=== PATIENT | female | born 1990 | race Caucasian/White ===

== ENCOUNTER 2017-12-06 13:21 | Inpatient (IN) | payer BC ==
[2017-12-07 03:46] VITALS: BMI 28.0
[2017-12-07] MEDS ORDERED: Methylergonovine 0.2 MG/ML VIAL IM PRN (03:55)
[2017-12-07] MEDS ORDERED: Misoprostol 200 MCG TAB PR PRN (03:55)
[2017-12-07] MEDS ORDERED: Ondansetron HCl/PF 4 MG/2 ML Vial IVP PRN ×2 (03:55→16:10)
[2017-12-07] MEDS ORDERED: Diphenoxylate HCl/Atropine Tablet PO PRN ×2 (03:55)
[2017-12-07] MEDS ORDERED: Lidocaine 1% (PF) 30 ML VIAL SC PRN (03:55)
[2017-12-07] MEDS ORDERED: Butorphanol Tartrate 1 MG/ML VIAL SLOW IVP PRN (03:55)
[2017-12-07] MEDS ORDERED: Carboprost 250 MCG/ML AMP IM PRN (03:55)
[2017-12-07] MEDS ORDERED: Acetaminophen 500 MG TAB PO PRN (03:55)
[2017-12-07] MEDS ORDERED: Ibuprofen 800 MG TAB PO PRN (03:55)
[2017-12-07] MEDS ORDERED: Promethazine HCl 25 MG/ML VIAL IM PRN ×2 (03:55→16:10)
[2017-12-07] MEDS ORDERED: HYDROcodone/Acetaminophen 5/325 mg Tablet PO PRN ×2 (03:55)
[2017-12-07] MEDS ORDERED: NS w/ Oxytocin 10 units 500 ML IV SCH ×2 (04:00)
[2017-12-07] MEDS: Lactated Ringer's 1,000 ML IV SCH ×5 (04:25→21:32)
[2017-12-07 04:31] LABS: Hemoglobin 13.6 g/dL (12.0-16.0); Mean Corpuscular HGB CONC 35.7 g/dL (32.0-36.0); Mean Corpuscular Hemoglobin 33.2 pg (27.0-31.0); Mean Corpuscular Volume 92.9 fL (78.0-98.0); Mean Platelet Volume 8.9 fL (7.4-10.4); Platelet Count 147 thou/uL (130-400); RBC Distribution Width 12.6 % (11.5-14.5); Red Blood Cell (RBC) Count 4.09 mill/uL (4.20-5.40); White Blood Cell (WBC) Count 8.7 thou/uL (4.8-10.8)
[2017-12-07] MEDS: Misoprostol 100 MCG TAB VAG SCH ×5 (04:35→16:16)
[2017-12-07 05:35] LABS: HBSAg Index 0.14 S/CO (0-0.99); Hep B Surf Ag Non-Reactive S/CO (NonReactive)
[2017-12-07 05:50] LABS: Syphilis Antibody Nonreactive (Nonreactive); Syphilis Antibody Index 0.05 S/CO (<1.00 Non-Reactive)
[2017-12-07] MEDS ORDERED: DISCONTINUE ALL PREVIOUS NARCOTICS FS SCH (09:15)
[2017-12-07] MEDS ORDERED: Butorphanol Tartrate 1 MG/ML VIAL ONE (15:16)
[2017-12-07] MEDS: Bupivacaine 0.5% 20 ML, fentaNYL Citrate/PF 400 MCG in Sodium Chloride 0.9% 72 ML EPIDURAL SCH ×2 (16:09→22:11)
[2017-12-07] MEDS ORDERED: Eucerin (Mineral Oil/Petrolatum,White) 30 gm Jar TOP PRN (16:10)
[2017-12-07] MEDS ORDERED: diphenhydrAMINE 50 MG/ML VIAL IVP PRN (16:10)
[2017-12-07] MEDS ORDERED: Naloxone HCl 0.4 mg/ml Vial IVP PRN ×2 (16:10)
[2017-12-07] MEDS ORDERED: Lactated Ringer's 500 ML IV PRN (16:10)
[2017-12-07] MEDS ORDERED: ePHEDrine/0.9% NaCl/PF SYRINGE 50 mg/10 ml SLOW IVP PRN (16:10)
[2017-12-07] MEDS ORDERED: Acetaminophen 325 MG TAB PO PRN (16:10)
[2017-12-07] MEDS ORDERED: fentaNYL Citrate/PF 400 MCG, Bupivacaine 0.5% 20 ML in Sodium Chloride 0.9% 72 ML EPIDURAL SCH (16:15)
[2017-12-07] MEDS ORDERED: Communication Order-Pharmacy FS SCH (16:15)
[2017-12-07] MEDS: NS / Oxytocin 40 units/1000ml 1,000 ML IV PRN (23:15)
[2017-12-08] MEDS: NS / Oxytocin 40 units/1000ml 1,000 ML IV PRN (00:23)
[2017-12-08] MEDS ORDERED: Ondansetron HCl/PF 4 MG/2 ML Vial IVP PRN (02:23)
[2017-12-08] MEDS ORDERED: Zolpidem Tartrate 5 MG TAB PO PRN (02:23)
[2017-12-08] MEDS ORDERED: Lanolin Ointment 7 GM TUBE TOP PRN (02:23)
[2017-12-08] MEDS ORDERED: Measles/Mumps/Rubella 10 MCG/0.5 ML VIAL SC ONE (02:23)
[2017-12-08] MEDS ORDERED: NS / Oxytocin 40 units/1000ml 1,000 ML IV SCH (02:23)
[2017-12-08] MEDS ORDERED: Promethazine HCl 25 MG/ML VIAL IM PRN (02:23)
[2017-12-08] MEDS ORDERED: Misoprostol 200 MCG TAB VAG PRN (02:23)
[2017-12-08] MEDS ORDERED: Bisacodyl 10 MG SUPP PR PRN (02:23)
[2017-12-08] MEDS ORDERED: Preparation H Ointment 28 GM TUBE PR PRN (02:23)
[2017-12-08] MEDS ORDERED: diphenhydrAMINE 25 MG CAP PO PRN (02:23)
[2017-12-08] MEDS ORDERED: HYDROcodone/Acetaminophen 5/325 mg Tablet PO PRN (02:23)
[2017-12-08] MEDS ORDERED: Benzocaine/Menthol 20-0.5% 60 ML CAN TOP PRN (02:23)
[2017-12-08] MEDS ORDERED: Milk Of Magnesia 30 ML UDCUP PO PRN (02:23)
[2017-12-08] MEDS ORDERED: Adacel (T-DAP) 0.5 ML VIAL IM ONE (02:45)
[2017-12-08] MEDS: Ibuprofen 800 MG TAB PO SCH ×4 (04:03→21:29)
[2017-12-08] MEDS: Ferrous Sulfate 325 MG TAB PO SCH ×3 (05:10→17:02)
[2017-12-08] MEDS: Docusate Calcium (SURFAK) 240 MG CAP PO SCH ×3 (05:11→21:29)
[2017-12-08 06:57] LABS: Hemoglobin 12.1 g/dL (12.0-16.0); Mean Corpuscular HGB CONC 35.5 g/dL (32.0-36.0); Mean Corpuscular Hemoglobin 33.4 pg (27.0-31.0); Mean Platelet Volume 8.9 fL (7.4-10.4); Platelet Count 113 thou/uL (130-400); RBC Distribution Width 12.4 % (11.5-14.5); Red Blood Cell (RBC) Count 3.64 mill/uL (4.20-5.40); White Blood Cell (WBC) Count 11.1 thou/uL (4.8-10.8)
[2017-12-08] MEDS ORDERED: Lidocaine 2% MPF 10 ML AMP (For Epidural Use) ONE (11:19)
[2017-12-08] MEDS: HYDROcodone/Acetaminophen 5/325 mg Tablet PO PRN ×2 (15:20→21:42)
--- NOTE | 2017-12-08 18:55 | DN ---
DATE OF DELIVERY: 12/07/2017 PREOPERATIVE DIAGNOSIS: Intrauterine of 40 weeks and 1 day with term induction of labor fo r patient with a history of decreased movement and nuchal cord noted on ultrasound. POSTOPERATIVE DIAGNOSIS: Intrauterine of 40 weeks and 1 day with term induction of labor f or patient with a history of decreased movement and nuchal cord noted on ultrasound. PROCEDURE: Spontaneous vaginal delivery over a second-degree midline laceration. FINDINGS: Viable female weighing 3402 grams or 7 pounds 8 ounces. Apgars of 8 and 9. Quanti tative blood loss 334 mL. COMPLICATIONS: None. SURGEON: Dr. Lam Davies. DETAILS OF THE PROCEDURE: Ms. Elam was brought into the [facility] where she underwent Cytotec induction. This was followed by Pitocin along with artificial rupture of membrane s. She made rapid progress following rupture of membranes. Once complete, she was allowed to push a nd did a great job bringing the baby down. She then delivered the baby in a vertex presentation, occ iput anterior without difficulty. Shoulders delivered without incident. Once the baby was out, mout h and nose were bulb suctioned, cord clamped and cut and baby handed to waiting attendants. Cord blo od was obtained. 3-0 chromic was used to repair the perineum. Uterus was firm. Bleeding was minima l. The patient was allowed to recover in the Labor and Delivery room and baby went to nurser y.
[2017-12-09] MEDS: Ibuprofen 800 MG TAB PO SCH ×2 (05:13→14:05)
[2017-12-09 08:13] VITALS: BP 114/63; TEMP 97.9
[2017-12-09] MEDS: Ferrous Sulfate 325 MG TAB PO SCH (08:46)
[2017-12-09] MEDS: Docusate Calcium (SURFAK) 240 MG CAP PO SCH (08:47)
== END 2017-12-09 15:34 | disposition home or self-care (01) | DRG 775 ==
LOC: L&D 12-07 03:35 → EDSTATUS 12-07 13:20 → 3SW 12-08 01:45
PROVIDERS: ADMIT Obstetrics & Gynecology; ATTEND Obstetrics & Gynecology
PROC: 10E0XZZ Delivery of Products of Conception, External Approach (ICD-10-PCS; principal; 2017-12-07)
PROC: 0KQM0ZZ Repair Perineum Muscle, Open Approach (ICD-10-PCS; 2017-12-07)
PROC: 3E0P7VZ Introduction of Hormone into Female Reproductive, Via Natural or Artificial Opening (ICD-10-PCS; 2017-12-07)
DX: O48.0 Post-term pregnancy (principal); Z3A.40 40 weeks gestation of pregnancy; Z37.0 Single live birth; O70.1 Second degree perineal laceration during delivery; O69.81X0 Labor and delivery complicated by cord around neck, without compression, not applicable or unspecified
CPT/HCPCS: 36415; 51702; 85027; 86780; 86850; 86900; 86901; 87340; J0595; J2001; J2405; J3010; J3490; J7050